=== PATIENT | female | born 1980 | race Caucasian/White ===

== ENCOUNTER 2019-06-03 08:25 | Emergency (ER) | payer OTHER ==
[~2019-06-03] VITALS: Ht 170.2 cm; Wt 90.7 kg
[~2019-06-03 08:25] MED LIST: ATIVAN1 MG PO; CLONAZEPAM PO; CYMBALTA PO; DESYREL PO; DOXYCYCLINE 10100 M1 PO; FLEXERIL PO; IBUPROFEN 800800 M1 PO; MOBIC7.5 M1 PO; NAPRELAN750 MG; PENICILLIN VK250 MG PO; PERCOCET 5-3251 EACH PO; PHENERGAN 25 MG25 M1 PO; PHENERGAN12.5 M1 RC; PREDNISONE 20 M20 MG PO; PRILOSEC40 MG PO; PROZAC40 MG PO; SUBOXONE 8 MG-1 EAC2 SL; SUBOXONE 8 MG-1 EAC3 SL; WELLBUTRIN 75 M75 M1; XANAX 1 MG TABLE1 MG PO; XANAX XR1 MG PO; XANAX XR2 MG PO
[2019-06-03] MEDS ORDERED: FLEXERIL PO (08:35)
[2019-06-03] MEDS ORDERED: NORCO 5-325 TA1 EAC1 PO (09:17)
[2019-06-03] MEDS ORDERED: MEDROLDOSEPACK PO (09:19)
[2019-06-03 09:37] VITALS: BP 149/76
== END 2019-06-03 09:39 | disposition home or self-care (01) ==
LOC: M.ERS 08:25
DX: M54.5 Low back pain (principal); F32.9 Major depressive disorder, single episode, unspecified; F41.9 Anxiety disorder, unspecified; Z90.49 Acquired absence of other specified parts of digestive tract; Z98.51 Tubal ligation status; Z88.1 Allergy status to other antibiotic agents; Z88.2 Allergy status to sulfonamides